=== PATIENT | male | born 1950 | race Caucasian/White ===

== ENCOUNTER 2024-01-08 16:00 | Outpatient (OUT) | payer MEDICARE, OTHER, SELFPAY ==
[2024-01-08 16:50] LABS: Basophils Absolute Auto 0.1 10^3/uL (0.0-0.1); Basophils Percent Auto 0.9 % (0.2-2.0); Eosinophils Absolute Auto 0.1 10^3/uL (0.0-0.7); Eosinophils Percent Auto 1.6 % (0.9-7.0); Hemoglobin 14.5 g/dL (14.0-18.0); Immature Granulocytes Abs Auto 0.02 10^3/uL (0.00-0.03); Immature Granulocytes Pct Auto 0.3 % (0.0-0.5); Lymphocytes Absolute Auto 1.5 10^3/uL (1.2-3.8); Lymphocytes Percent Auto 21.9 % (20.5-60.0); Mean Corpuscular HGB Conc 34.5 g/dL (29.9-35.2); Mean Corpuscular Hemoglobin 31.8 pg (25.9-34.0); Mean Corpuscular Volume 92.1 fL (80.0-94.0); Mean Platelet Volume 9.2 fL (9.5-13.5); Monocytes Absolute Auto 0.6 10^3/uL (0.3-0.8); Monocytes Percent Auto 8.7 % (1.7-12.0); Neutrophils Absolute Auto 4.5 10^3/uL (1.4-6.5); Neutrophils Percent Auto 66.6 % (43.0-75.0); Platelet Count 188 10^3/uL (150-450); Red Blood Count 4.56 10^6/uL (4.70-6.10); Red Cell Distribution Width 12.3 % (11.0-15.0); White Blood Count 6.8 10^3/uL (4.0-11.0)
[2024-01-08 17:41] LABS: Alanine Aminotransferase 37 U/L (16-63); Albumin Globulin Ratio 1.1; Albumin Level 3.8 g/dL (3.4-5.0); Alkaline Phosphatase 88 U/L (46-116); Anion Gap 9.3; Aspartate Amino Transferase 20 U/L (15-37); BUN Creatinine Ratio 17.4; Bilirubin Total 1.1 mg/dL (0.2-1.0); Chloride 106 mmol/L (98-107); Estimated GFR (African America >60 (>=60); Estimated GFR (Non-African Ame >60 (>=60); Globulin 3.5 g/dL; Glucose 87 mg/dL (74-106); Potassium 4.3 mmol/L (3.5-5.1); Sodium 140 mmol/L (136-145); Total Protein 7.3 g/dL (6.4-8.2)
== END 2024-01-08 16:01 | disposition home or self-care (01) ==
LOC: LAB 16:06
PROVIDERS: PCP Family Medicine; Visit Provider Family Medicine
DX: Z00.00 Encounter for general adult medical examination without abnormal findings (principal); R03.0 Elevated blood-pressure reading, without diagnosis of hypertension
CPT/HCPCS: 36415; 80053; 85025

== ENCOUNTER 2024-09-23 21:43 | Emergency (ER) | payer MEDICARE, OTHER, SELFPAY ==
[2024-09-23 21:46] VITALS: BP 148/92; PULSE 81; TEMP 36.4; O2SAT 97; BMI 26.6
--- OUTSIDE RECORDS SUMMARY | 2024-09-23 21:50 | XMS_ITS ---
Author Name Auto Generated Organization [facility] Care Team Providers Care Talent Acquisition Administrator Name Role Phone KENYA HERBERT Attending Unavailable POCOS, THUAN Mederos Referring Unavailable TATTERSALL, KENYA Attending Unavailable POCOS, THUAN Mederos Referring Unavailable POCOS, THUAN Mederos Attending Unavailable TATTERSALL, KENYA Attending Unavailable POCOS, THUAN Mederos Referring Unavailable TATTERSALL, KENYA Attending Unavailable POCOS, THUAN Mederos Referring Unavailable TATTERSKENYA BARROW Attending Unavailable POCOS, THUAN Mederos Referring Unavailable TATTERSALL, KENYA Attending Unavailable POCOS, THUAN Mederos Referring Unavailable TATTERSALL, KENYA Attending Unavailable POCOS, THUAN Mederos Referring Unavailable TATTERSPUSHPA, KENYA Attending Unavailable POCOS, THUAN Mederos Referring Unavailable TATTERSPUSHPA, KENYA Attending Unavailable POCOS, THUAN Mederos Referring Unavailable Carl GUY Attending Unavailable GUY, Carl Mccarthy Attending Unavailable GUY, Carl Mccarthy Admitting Unavailable GUYCarl Attending Unavailable GUY, Carl Mccarthy Admitting Unavailable PROBLEMS No Problem Records Found PROCEDURES No Procedure Records Found RESULTS PSA SCREEN, TOTAL Collected: 5 10:45 AM Status: F Source: [facility] REPOSITORY TYPE CODE TESTS RESULT OUT OF RANGE REFERENCE UNITS LAB 2857-1([facility]) PROSTATE SPECIFIC AG:MCNC:PT:S ER/PLAS:QN: 1.2 Normal 0.1-3.5 ng/mL Result Comment: The concentr ation of PSA determined by different manufacturers can vary due to differences in assay methods and reagent specificity. Values obtained from different assay methods cannot be used interchangeably. The methodology used for this result was chemiluminescence using [employer]'s Access Hybritech PSA reagent. Performed By: #### [id number] #### [facility] [address] [place] [address] UROLOGY OFFICE/CLINIC NOTE Observed: 08/2024 10:33 AM Status: F Source: [facility] REPOSITORY Urology Office/Clinic Note Chief Complaint 1 yr w/ psa HPI Staff 73yr old male pt here for 1yr f/u with PSA. S/p cysto 03/04/23. Previous Dx: BPH with urinary obstruction, asymptomatic microscopic hematuria, screening PSA *Flomax 0.4mg qd PSA: 08/24/20 - 1.58 10/13/21 - 1.15 11/15/22 - 1.53 no new PSA found, pt states he did get bw done through PCP, was not sure if they did PSA or not pt states he is down to 1 tamsulosin daily due to bloody noses. pt would like to discuss his stuffiness at night, he feels it may have to do with this med. pt unable to give urine sample, states he went right before this appt. Dysuria: _no Incomplete bladder emptying: _no Hematuria: _no Frequency: _q2-3 hrs Urgency: _no Nocturia: _1-2x Stream: _weak, stop and go. Leaking: _no Post void dripping: _no Wearing pads/ Depends: _no Urge incontinence: _no Stress incontinence: _no Incontinence without Sensory Awareness: _no Abdominal pain: _no Flank pain: _not due to urinary issues Sexual complaints: _ History of Present Illness Tests reviewed: none I have reviewed the previous health record information and history for this patient from Dr. Guy. I have reviewed and verified the staff HPI to be accurate for this encounter. Review of Systems PHQ Score Initial Depression Screen Score: 0 SCORE ROS - Provider Constitutional: denies weight loss, denies hot flashes. Eyes: denies eye problems. Gastrointestinal: denies nausea, denies vomiting. Cardiovascular: denies chest pain or angina. Integumentary: no dryness Musculoskeletal: denies musculoskeletal symptoms. ENMT: denies otolaryngeal symptoms. Respiratory: no shortness of breath. Heme/Lymph: denies easy bleeding tendency, denies easy bruising tendency. Psychiatric: no confusion, no anxiety. Genitourinary: See HPI. Physical Exam Vitals & Measurements T: 37 ???C(Oral) HR: 68(Peripheral) BP: 164/100 HT: 69 in HT: 175 cm WT: 82 kg WT: 180.779 lb BMI: 26.78 General Appearance: alert, no distress, well nourished, well developed male. Assessment/Plan 1. BPH with urinary obstruction (N40.1: Benign prostatic hyperplasia with lower urinary tract symptoms) S/p cysto 03/04/23 - obstructed prostate, short trilobar obstruction. Severe trabeculation (3) Was taking Flomax 0.4mg qAM. However refills were sent for bid and pt had congestion which caused nose bleeds, had dealt with in the past when he took bid vs qd. Admits he stopped taking Flomax entirely in the last few days. Did notice a change in urination. Again discussed alternative oral medications such as Dutasteride. Advised pt this is not typically recommended given short prostate. However given intolerance of Flomax, advised pt he can try switching meds. Risks/benefits discussed. Pt wishes to try this. Also shares he drinks laney root and turmeric which has helped his sxs. Discussed this is not approved by the FDA but pt can continue taking if he feels benefits. -D/c Flomax -Start Dutasteride 0.5mg qd. Possible SEs discussed. Rx sent to [facility]. 2. Asymptomatic microscopic hematuria (R31.21: Asymptomatic microscopic hematuria) CT AP w/ con 10/25/22 showed a small right renal cyst and enlarged prostate. Pt states he thinks this was ordered for hematuria. UA from 10/04/22 showed small blood. S/p cysto 03/04/23 neg for b.t. or lesions. Small open diverticuli. [1] No sample provided for UA today, went prior to appt. Denies gross hematira. -Cont sx monitoring. Pt knows to notify the office if he were to experience gross hematuria or clots. 3. Screening PSA (prostate specific antigen) (Z12.5: Encounter for screening for malignant neoplasm of prostate) PSA: 08/24/20 - 1.58 10/13/21 - 1.15 11/15/22 - 1.53 No updated PSA level on record. -PSA level to be drawn IO today. Will call pt with results. -Will continue to monitor Follow-up With When Contact Information RUDOLPH KEYS, Carl Mccarthy, [facility] [address], [place] [address]- [phone] Additional Instructions: 1 yr w/ PSA Patient Education Benign Prostatic Hyperplasia I, Fe Amor, personally scribed for Dr. Guy on 07/26/2024 10:33:15. . Documentation recorded by the scribe, Fe Amor, accurately reflects the services(s) I performed and decisions made by me. Authenticated by Dr. Guy on 07/26/2024 10:37:30. Problem List/Past Medical History Ongoing Asymptomatic microscopic hematuria BPH with urinary obstruction Fatty liver Hiatal hernia Screening PSA (prostate specific antigen) Historical No qualifying data Procedure/Surgical History Cystoscopy (03/04/2023), Arthroplasty of knee (10/10/2020), Arthroscopy of knee, Arthroscopy of shoulder, Hernia repair. Medications esomeprazole 20 mg Cap-DR, 20 mg= 1 cap(s), Oral, Daily multivitamin, Daily tamsulosin 0.4 mg Cap, 0.4 mg= 1 cap(s), Oral, BID, 3 refills Allergies Latex (Rash) Social History Alcohol - Denies Alcohol Use, 09/18/2020 Never., 07/26/2024 Substance Abuse - Denies Substance Abuse, 09/18/2020 Never., 07/26/2024 Tobacco - Denies Tobacco Use, 09/18/2020 Never (less than 100 in lifetime) Tobacco Use:., 07/26/2024 Family History Bladder cancer: Father. Immunizations Vaccine Date Status Comments SARS-CoV-2 (COVID-19) Ad26 vaccine 08/25/2020 Given Prophylaxis [1] URO- S/p cysto; Carl GUY MD 07/25/2023 10:27 EST Result Comment: Electronical ly Signed By: Carl GUY MD\.br\Date and Time Signed: 07/26/24 10:37 EST\.br\Electronically Co-Signed By: Fe Amor\.br\Date and Time Co-Signed: 07/26/24 10:34 EST PATIENT EDUCATION Observed: 07/26/2024 10:31 AM Status: F Source: [facility] REPOSITORY Patient Education Urology Benign Prostatic Hyperplasia Benign prostatic hyperplasia (BPH) is an enlarged prostate gland that is caused by the normal aging process. The prostate may get bigger as a man gets older. The condition is not caused by cancer. The prostate is a walnut-sized gland that is involved in the production of semen. It is located in front of the rectum and below the bladder. The bladder stores urine. The urethra carries stored urine out of the body. An enlarged prostate can press on the urethra. This can make it harder to pass urine. The buildup of urine in the bladder can cause infection. Back pressure and infection may progress to bladder damage and kidney (renal) failure. What are the causes? This condition is part of the normal aging process. However, not all men develop problems from this condition. If the prostate enlarges away from the urethra, urine flow will not be blocked. If it enlarges toward the urethra and compresses it, there will be problems passing urine. What increases the risk? This condition is more likely to develop in men older than 50 years. What are the signs or symptoms? Symptoms of this condition include: ??? Getting up often during the night to urinate. ??? Needing to urinate frequently during the day. ??? Difficulty starting urine flow. ??? Decrease in size and strength of your urine stream. ??? Leaking (dribbling) after urinating. ??? Inability to pass urine. This needs immediate treatment. ??? Inability to completely empty your bladder. ??? Pain when you pass urine. This is more common if there is also an infection. ??? Urinary tract infection (UTI). How is this diagnosed? This condition is diagnosed based on your medical history, a physical exam, and your symptoms. Tests will also be done, such as: ??? A post-void bladder scan. This measures any amount of urine that may remain in your bladder after you finish urinating. ??? A digital rectal exam. In a rectal exam, your health care provider checks your prostate by putting a lubricated, gloved finger into your rectum to feel the back of your prostate gland. This exam detects the size of your gland and any abnormal lumps or growths. ??? An exam of your urine (urinalysis). ??? A prostate specific antigen (PSA) screening. This is a blood test used to screen for prostate cancer. ??? An ultrasound. This test uses sound waves to electronically produce a picture of your prostate gland. Your health care provider may refer you to a specialist in kidney and prostate diseases (urologist). How is this treated? Once symptoms begin, your health care provider will monitor your condition (active surveillance or watchful waiting). Treatment for this condition will depend on the severity of your condition. Treatment may include: ??? Observation and yearly exams. This may be the only treatment needed if your condition and symptoms are mild. ??? Medicines to relieve your symptoms, including: ? Medicines to shrink the prostate. ? Medicines to relax the muscle of the prostate. ??? Surgery in severe cases. Surgery may include: ? Prostatectomy. In this procedure, the prostate tissue is removed completely through an open incision or with a laparoscope or robotics. ? Transurethral resection of the prostate (TURP). In this procedure, a tool is inserted through the opening at the tip of the penis (urethra). It is used to cut away tissue of the inner core of the prostate. The pieces are removed through the same opening of the penis. This removes the blockage. ? Transurethral incision (TUIP). In this procedure, small cuts are made in the prostate. This lessens the prostate's pressure on the urethra. ? Transurethral microwave thermotherapy (TUMT). This procedure uses microwaves to create heat. The heat destroys and removes a small amount of prostate tissue. ? Transurethral needle ablation (TUNA). This procedure uses radio frequencies to destroy and remove a small amount of prostate tissue. ? Interstitial laser coagulation (ILC). This procedure uses a laser to destroy and remove a small amount of prostate tissue. ? Transurethral electrovaporization (TUVP). This procedure uses electrodes to destroy and remove a small amount of prostate tissue. ? Prostatic urethral lift. This procedure inserts an implant to push the lobes of the prostate away from the urethra. Follow these instructions at home: ??? Take alrn-lzd-ovmgmam and prescription medicines only as told by your health care provider. ??? Monitor your symptoms for any changes. Contact your health care provider with any changes. ??? Avoid drinking large amounts of liquid before going to bed or out in public. ??? Avoid or reduce how much caffeine or alcohol you drink. ??? Give yourself time when you urinate. ??? Keep all follow-up visits. This is important. Contact a health care provider if: ??? You have unexplained back pain. ??? Your symptoms do not get better with treatment. ??? You develop side effects from the medicine you are taking. ??? Your urine becomes very dark or has a bad smell. ??? Your lower abdomen becomes distended and you have trouble passing urine. Get help right away if: ??? You have a fever or chills. ??? You suddenly cannot urinate. ??? You feel light-headed or very dizzy, or you faint. ??? There are large amounts of blood or clots in your urine. ??? Your urinary problems become hard to manage. ??? You develop moderate to severe low back or flank pain. The flank is the side of your body between the ribs and the hip. These symptoms may be an emergency. Get help right away. Call 911. ??? Do not wait to see if the symptoms will go away. ??? Do not drive yourself to the hospital. Summary ??? Benign prostatic hyperplasia (BPH) is an enlarged prostate that is caused by the normal aging process. It is not caused by cancer. ??? An enlarged prostate can press on the urethra. This can make it hard to pass urine. ??? This condition is more likely to develop in men older than 50 years. ??? Get help right away if you suddenly cannot urinate. This information is not intended to replace advice given to you by your health care provider. Make sure you discuss any questions you have with your health care provider. Document Revised: 12/26/2021 Document Reviewed: 12/26/2021 [employer] Patient Education ? 2023 [employer] ALLERGIES DATE TYPE / CODE NAME / CODE REACTION SEVERITY SOURCE /[id number](SNOMED CT) Latex [id number] [facility] ENCOUNTERS ADMIT/DISCHARGE ACCOUNT NUMBER ADMITTING ENCOUNTER CLASS LOCATION SOURCE 07/26/2024 [id number] Carl GUY Ambulatory [facility] 07/26/2024/07/26/19 [id number] Carl GUY Ambulatory [facility] 07/26/2024/07/26/19 [id number] Ambulatory EU YovaniFuentessandee lding:JANET Barnes m: Exam 3 [facility] 12/09/2023/12/10/19 24 [id number] Ambulatory Building:NO [facility] 12/01/2023/12/01/19 24 [id number] Ambulatory Building:NO [facility] 11/27/2023/11/27/19 24 [id number] Ambulatory Building:NO [facility] 11/20/2023/11/20/19 24 [id number] Ambulatory Building:NO [facility] 10/23/2023/10/23/19 24 [id number] Ambulatory Building:NO [facility] 10/13/2023/10/13/19 24 [id number] Ambulatory Building:NO [facility] 10/09/2023/10/09/19 24 [id number] Ambulatory Building:NO [facility] 10/06/2023/10/06/19 24 [id number] Ambulatory Building:NO [facility] 10/02/2023/10/02/19 24 [id number] Ambulatory Building:NO [facility] 09/25/2023/09/25/19 24 [id number] Ambulatory Building:NO [facility] PAYERS ENCOUNTER GUARANTOR PAYER SUBSCRIBER SOURCE 07/26/2024 PATEL GALAVIZ: [place]IP[place] Te: ~(220 (IJ) Primary Insurance:MEDICAREP olicy Number: [id number] e Date:6622-05-35[address]X [address], [place] [address]NQ[facility] Secondary Insurance:MUTUAL OF OMAHAPolicy Number: [id number] Date:9063-65-13TVXB [place], [place] [address]PP: [facility]/26/2024 PATEL PERDOMOB: [facility]: ~(374 (HP) Primary Insurance:MEDICAREP olicy Number: [id number] e Date:3364-95-91LL [address] [address], [place] [address]FV: PATEL Mederos [facility] 07/26/2024 Secondary Insurance:MUTUAL OF OMAHAPolicy Number: [id number] Date:6671-39-00FDSA [place], [place] [address]GW: PATEL Mederos [facility] 12/09/2023 PATEL PERDOMOB: [place] [address]Jdp: (HP) Primary Insurance:MEDICAREP olicy Number: [id number] e Date:5466-06-20Wgqt Name:Medicare PATEL PERDOMOB: [id number] [place] [address] [facility] 12/09/2023 Secondary Insurance:MUTUAL OF OMAHAPolicy Number: [id number] Date:2023-06-23 PATEL PERDOMOB: [id number] [place] [address] [facility] 12/01/2023 PATEL PERDOMOB: [place] [address]Fwx: (HP) Primary Insurance:MEDICAREP olicy Number: [id number] e Date:4597-71-36Yehr Name:Medicare PATEL Mederos AMMYDOB: [id number] [place] [id number] [facility] 12/01/2023 Secondary Insurance:MUTUAL OF OMAHAPolicy Number: [id number] Date:2023-06-23 PATEL Gatito AMMYDOB: [id number] [place] [id number] [facility] 11/27/2023 PATEL Gatito AMMYDOB: [place] [id number]: (HP) Primary Insurance:MEDICAREP olicy Number: [id number] e Date:2566-00-77Haqi Name:Medicare PATEL Mederos AMMYDOB: [id number] [address] [facility] 11/27/2023 Secondary Insurance:MUTUAL OF OMAHAPolicy Number: [id number] Date:2023-06-23 PATEL GIMENEZDOB: [id number] [place] [id number] [facility] 11/20/2023 PATEL GIMENEZDOB: [place] [id number]: (HP) Primary Insurance:MEDICAREP olicy Number: [id number] e Date:5276-01-33Ticj Name:Medicare PATEL Mederos AMMYDOB: [id number] [place] [id number] [facility] 11/20/2023 Secondary Insurance:MUTUAL OF OMAHAPolicy Number: [id number] Date:2023-06-23 PATEL GIMENEZDOB: [id number] [place] [id number] [facility] 10/23/2023 PATEL GIMENEZDOB: [place] [id number]: (HP) Primary Insurance:MEDICAREP olicy Number: [id number] e Date:1808-49-95Rnpu Name:Medicare PATEL Mederos AMMYDOB: [id number] [place] [address] [facility] 10/23/2023 Secondary Insurance:MUTUAL OF OMAHAPolicy Number: [id number] Date:2023-06-23 PATEL GIMENEZDOB: [id number] [place] [id number] [facility] 10/13/2023 PATEL PERDOMOB: [address] [address]Efw: (HP) Primary Insurance:MEDICAREP olicy Number: [id number] e Date:4071-71-72Xqkg Name:Medicare PATEL Gatito AMMYDOB: [id number] [place] [id number] [facility] 10/13/2023 Secondary Insurance:MUTUAL OF OMAHAPolicy Number: [id number] Date:2023-06-23 PATEL PERDOMOB: [id number] [place] [id number] [facility] 10/09/2023 PATEL GIMENEZDOB: [place] [id number]: (HP) Primary Insurance:MEDICAREP olicy Number: [id number] e Date:4069-70-48Vocg Name:Medicare PATEL Gatito AMMYDOB: [id number] [place] [address] [facility] 10/09/2023 Secondary Insurance:MUTUAL OF OMAHAPolicy Number: [id number] Date:2023-06-23 PATEL PERDOMOB: [id number] [place] [id number] [facility] 10/06/2023 PATEL Gatito AMMYDOB: [place] [id number]: (HP) Primary Insurance:MEDICAREP olicy Number: [id number] e Date:6571-00-27Clgp Name:Medicare PATEL Mederos AMMYDOB: [id number] [place] [id number] [facility] 10/06/2023 Secondary Insurance:MUTUAL OF OMAHAPolicy Number: [id number] Date:2023-06-23 PATEL Gatito AMMYDOB: [id number] [address] [facility] 10/02/2023 PATEL Gatito CONORB: [address]Lrp: (HP) Primary Insurance:MEDICAREP olicy Number: [id number] e Date:6906-92-23Qyxr Name:Medicare PATEL Mederos AMMYDOB: [id number] [address] [facility] 10/02/2023 Secondary Insurance:MUTUAL OF OMAHAPolicy Number: [id number] Date:2023-06-23 PATEL Gatito AMMYDOB: [id number] [place] [id number] [facility] 09/25/2023 PATEL Gatito AMMYDOB: [place] [id number]: (HP) Primary Insurance:MEDICAREP olicy Number: [id number] e Date:4641-14-64Ysto Name:Medicare PATEL Mederos AMMYDOB: [id number] [place] [id number] [facility] 09/25/2023 Secondary Insurance:MUTUAL OF OMAHAPolicy Number: [id number] Date:2023-06-23 PATEL PERDOMOB: [id number] [place] [address] [facility]
--- NOTE | 2024-09-23 22:34 | ED.GENADUL1 ---
HPI HPI - General Adult General Chief complaint: Skin/Abscess/Foreign Body Stated complaint: RASH/ALLERGIC REACTION Time Seen by Provider: 09/23/24 22:26 Source: patient Mode of arrival: walk-in Limitations: no limitations History of Present Illness HPI narrative: 74-year-old male presents to the emergency department for a rash. It is pruritic and he has had it for the past 2 days. He has not been on any new medications and has not used any new soaps or detergents. 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 No difficulty breathing or swallowing. No tongue swelling. The rash is continuous. Related Data Previous Rx's ?Medication ?Instructions ?Recorded prednisone 10 mg tablet See Rx Instructions .Route 09/23/24 .COMPLEX #30 tabs Allergies Allergy/AdvReac Type Severity Reaction Status Date / Time latex Allergy Unknown Unknown Verified 09/23/24 21:51 Opioid HPI Opioid Management Most Recent Opioid Data: No Data to Display Review of Systems ROS Narrative A ten point review of systems is negative except as noted above. PFSH PFSH Social History Little interest or pleasure in doing things: not at all Feeling down, depressed, or hopeless: not at all Exam Narrative Exam Narrative: Nurses note and vital signs reviewed and patient is not hypoxic. General: The patient appears in no apparent distress. Patient is resting comfortably on cart. Skin: Warm, dry, no pallor noted. There is erythematous rash present with urticaria primarily on the anterior lower torso. Extends to his thighs and is also on his arms and his bilateral. No tongue swelling and he is handling his oral secretions well. Head: Normocephalic, atraumatic Eye: Normal conjunctiva, no drainage Ears, Nose, Mouth, and Throat: oral mucosa is moist. Nares patent. Cardiovascular: Regular Rate and Rhythm Respiratory: Patient is in no distress, no accessory muscle use, lungs are clear to auscultation, no wheezing, rales or rhonchi Back: non-tender GI: Soft and nontender Musculoskeletal: No joint Neurological: A&O, normal speech Psychiatric: Cooperative Constitutional Vital Signs, click to edit/add: Last Vital Signs Temp 97.6 F 09/23/24 21:46 Pulse 81 09/23/24 21:46 Resp 18 09/23/24 21:46 BP 148/92 H 09/23/24 21:46 Pulse Ox 97 09/23/24 21:46 O2 Del Method Room Air 09/23/24 21:46 Course Vital Signs Vital signs: Vital Signs Temperature 97.6 F 09/23/24 21:46 Pulse Rate 81 09/23/24 21:46 Respiratory Rate 18 09/23/24 21:46 Blood Pressure 148/92 H 09/23/24 21:46 Pulse Oximetry 97 09/23/24 21:46 Oxygen Delivery Method Room Air 09/23/24 21:46 Temperature 97.6 F 09/23/24 21:46 Pulse Rate 81 09/23/24 21:46 Respiratory Rate 18 09/23/24 21:46 Blood Pressure 148/92 H 09/23/24 21:46 Pulse Oximetry 97 09/23/24 21:46 Oxygen Delivery Method Room Air 09/23/24 21:46 Medical Decision Making MDM Narrative Medical decision making narrative: The patient has urticaria and was treated with IM Solu-Medrol and Benadryl. The cause is not immediately clear. He was prescribed prednisone and will continue Benadryl at home as well. Treatment diagnosis and follow-up were discussed with the patient and his . Differential Diagnosis Differential Diagnosis: Urticaria, allergic reaction, cellulitis Discharge Plan Discharge Chief Complaint: Skin/Abscess/Foreign Body Clinical Impression: Urticaria Patient Disposition: Home, Self-Care Time of Disposition Decision: 22:33 Condition: Good Mode of Transportation: Private Vehicle Prescriptions / Home Meds: New prednisone 10 mg tablet See Rx Instructions .ROUTE .COMPLEX Qty: 30 0RF Rx Instructions: 4 by mouth daily for three days then 3 by mouth daily for three days then 2 by mouth daily for three days then 1 by mouth daily for three days Print Language: Bulgarian Instructions: Urticaria (ED) Additional Instructions: Take 25 to 50 mg of [id number] Benadryl by mouth every 6 hours as needed for itching Referrals: Rosalind Tucker MD [Primary Care Provider] - 1 week
[2024-09-23] MEDS: DIPHENHYDRAMINE HCL 50 MG/ML VIAL IM (22:56)
[2024-09-23] MEDS: METHYLPREDNISOLONE SOD SUCC PF 125 MG/2 ML VIAL IM (22:56)
== END 2024-09-23 23:03 | disposition home or self-care (01) ==
PROVIDERS: Emergency Provider Emergency Medicine; PCP Family Medicine
DX: L50.9 Urticaria, unspecified (principal)
CPT/HCPCS: 96372; 99284; J1200; J2919

== ENCOUNTER 2024-10-15 07:26 | Outpatient (OUT) | payer MEDICARE, OTHER, SELFPAY ==
--- NOTE | 2024-10-15 07:40 | XR_ITS ---
[address] [address] Patient Name: PATEL GIMENEZ MRN: [id number] date: 1950 Sex: M Assigned Patient Location: CARD Current Patient Location: CARD Accession/Order Number: [id number] Exam Date: 10/15/2024 09:12 Report Date: 10/15/2024 09:12 At the request of: JEFERSON GARCIA MD Procedure: XR chest 2V Chest 2 views CLINICAL HISTORY: Dyspnea On Exertion COMPARISON: CT chest 10/25/2022 FINDINGS: Heart normal in size. Lungs are clear. No free air. XR/XR chest 2V IMPRESSION: NO ACUTE CARDIOPULMONARY ABNORMALITY. Impression dictated by: Navid Kessler Jr., D.OAvani10/15/2024 9:12 AM Dictation Location: [place] [address] Electronically authenticated by: [id number] Y Date: 10/15/2024 09:12
--- NOTE | 2024-10-15 07:45 | ECG_ITS ---
[facility] Test Date: 2024-10-15 Pat Name: PATEL GIMENEZ Department: Room: - Gender: Male [employer]: : 1950 Requested By: JEFERSON GARCIA Order Number: [id number] Reading MD: DON BARBOZA M.D. Measurements Intervals [place] Rate: 66 P: 29 CO: 191 QRS: 42 QRSD: 102 T: 36 QT: 396 QTc: 417 Interpretive Statements SINUS RHYTHM Normal ECG Compared to ECG 10/03/2022 11:57:15 No significant changes Electronically Signed On 10-15-2024 12:15:17 EDT by DON BARBOZA M.D.
== END 2024-10-15 07:27 | disposition home or self-care (01) ==
LOC: CARD 07:26
PROVIDERS: PCP Family Medicine; Visit Provider Family Medicine
DX: R06.09 Other forms of dyspnea (principal)
CPT/HCPCS: 71046; 93005